=== PATIENT | female | born 1970 | race Caucasian/White ===

== ENCOUNTER 2018-10-25 10:38 | Emergency (ER) | payer OTHER ==
[2018-10-25 10:54] VITALS: BP 143/71; PULSE 72; TEMP 97.8; BMI 23.2
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
== END 2018-10-25 12:34 | disposition home or self-care (01) ==
LOC: JERFT 10:38
PROC: 2W3RX1Z Immobilization of Left Lower Leg using Splint (ICD-10-PCS; principal; 2018-10-25)
DX: S90.31XA Contusion of right foot, initial encounter (principal); S93.402A Sprain of unspecified ligament of left ankle, initial encounter; X58.XXXA Exposure to other specified factors, initial encounter; Y93.89 Activity, other specified; Y92.811 Bus as the place of occurrence of the external cause
CPT/HCPCS: 29515; 73590-TC-LT-FY; 73610-TC-LT-FY; 73630-TC-LT; 73630-TC-RT-FY; 99281-25